=== PATIENT | male | born 1985 | race African-American/Black ===

== ENCOUNTER 2018-01-05 18:05 | Emergency (ER) | payer SELFPAY | END 2018-01-05 18:19 | disposition left against medical advice (07) | LOC: ERS 18:05 | DX: Z53.21 Procedure and treatment not carried out due to patient leaving prior to being seen by health care provider (principal) ==

== ENCOUNTER 2018-01-05 19:09 | Emergency (ER) | payer SELFPAY | END 2018-01-05 20:09 | disposition home or self-care (01) | LOC: ERS 19:09 | DX: B35.3 Tinea pedis (principal) | CPT/HCPCS: 99283 ==

== ENCOUNTER 2019-05-12 07:43 | Emergency (ER) | payer SELFPAY ==
[2019-05-12] MEDS ORDERED: Ketorolac Tromethamine 60 MG/2 ML VIAL ONE (08:18)
== END 2019-05-12 08:42 | disposition home or self-care (01) ==
LOC: ERS 07:43
DX: M54.5 Low back pain (principal); M54.6 Pain in thoracic spine; X50.0XXA Overexertion from strenuous movement or load, initial encounter
CPT/HCPCS: 96372; 99283; J1885

== ENCOUNTER 2019-11-01 13:49 | Emergency (ER) | payer SELFPAY ==
[2019-11-01] MEDS ORDERED: Adacel (T-DAP) 0.5 ML SYRINGE ONE (14:36)
[2019-11-01] MEDS ORDERED: Lidocaine 1% w/Epinephrine 1:100K 20 ML VIAL ONE (14:36)
--- NOTE | 2019-11-01 14:52 | CT ---
CT BRAIN WITHOUT CONTRAST: HISTORY: Head trauma, positive loss of consciousness. FINDINGS: No evidence of acute infarct, hemorrhage, midline shift, or abnormal extraaxial fluid collections is seen. The ventricular size is normal and the basilar cisterns patent. The bony calvarium is intact. The visualized paranasal sinuses and mastoid air cells are well aerated. IMPRESSION: No CT evidence of acute intracranial process. POS: [facility]
--- NOTE | 2019-11-01 14:56 | CT ---
CT CERVICAL SPINE WITH CORONAL AND SAGITTAL REFORMATIONS: HISTORY: Trauma, loss of consciousness, neck pain. FINDINGS: Vertebral body heights are maintained. No acute fracture, subluxation, or facet malalignment is seen . The visualized lung parham are clear. The prevertebral soft tissues are grossly unremarkable. IMPRESSION: No CT evidence of cervical spine fracture or traumatic subluxation. POS: [facility]
[2019-11-01] MEDS ORDERED: Bacitracin 1 PK ONE (16:06)
== END 2019-11-01 16:24 | disposition home or self-care (01) ==
LOC: ERS 13:49
DX: S06.9X9A Unspecified intracranial injury with loss of consciousness of unspecified duration, initial encounter (principal); S01.01XA Laceration without foreign body of scalp, initial encounter; S01.81XA Laceration without foreign body of other part of head, initial encounter; Z23 Encounter for immunization; Y04.2XXA Assault by strike against or bumped into by another person, initial encounter; Y92.009 Unspecified place in unspecified non-institutional (private) residence as the place of occurrence of the external cause
CPT/HCPCS: 12002; 12013; 70450; 72125; 90471; 90715; L0120

== ENCOUNTER 2019-11-09 18:01 | Emergency (ER) | payer SELFPAY ==
[2019-11-09] MEDS ORDERED: Triple Antibiotic Oint 1 GM Packet ONE (18:23)
== END 2019-11-09 18:44 | disposition home or self-care (01) ==
LOC: ERS 18:01
DX: S01.01XD Laceration without foreign body of scalp, subsequent encounter (principal)

== ENCOUNTER 2020-02-08 05:44 | Emergency (ER) | payer OTHER, SELFPAY ==
[2020-02-08 15:09] LABS: SARS-CoV-2 MS2 Positive; SARS-CoV-2 N Gene Negative; SARS-CoV-2 S Gene Negative; SARS-CoV-2 by NAA Not Detected (NotDetected); SARS-CoV-2 orf1ab Negative
== END 2020-02-08 06:01 | disposition home or self-care (01) ==
LOC: ERS 05:44
DX: R19.7 Diarrhea, unspecified (principal); Z20.828 Contact with and (suspected) exposure to other viral communicable diseases
CPT/HCPCS: 87635; 99284; U0003

== ENCOUNTER 2020-12-27 07:29 | Emergency (ER) | payer OTHER, SELFPAY ==
[2020-12-27] MEDS ORDERED: Ketorolac Tromethamine 30 MG/ML VIAL ONE (08:34)
== END 2020-12-27 09:05 | disposition home or self-care (01) ==
LOC: ERS 07:29
DX: M54.5 Low back pain (principal); J45.909 Unspecified asthma, uncomplicated; X50.1XXA Overexertion from prolonged static or awkward postures, initial encounter
CPT/HCPCS: 96372; 99283; J1885